=== PATIENT | female | born 1960 | race Caucasian/White ===

== ENCOUNTER 2016-10-05 12:11 | Day surgery (SDC) | payer OTHER ==
[~2016-10-05] VITALS: Ht 157.5 cm; Wt 61.5 kg
[~2016-10-05 12:11] MED LIST: CALC1TAB98 PO; MULT-552 PO
[2016-10-05 13:26] VITALS: Ht 157.5 cm; Wt 61.5 kg
[2016-10-05] MEDS ORDERED: LORA10TA3 PO (13:34)
[2016-10-05] MEDS ORDERED: PANT40TA4 PO (13:34)
[2016-10-05] MEDS ORDERED: [UNRECOGNIZED DRUG - OTHER] PO (13:34)
[2016-10-05] MEDS ORDERED: PROPOFOL 20 ML ONE (15:15)
[2016-10-05] MEDS ORDERED: MIDAZOLAM 1 MG/ML 2 ML INJ ONE (15:16)
[2016-10-05] MEDS ORDERED: LIDOCAINE 1% (MPF) 5 ML VIAL ONE (15:16)
[2016-10-05 15:28] VITALS: BP 94/64; PULSE 72; RESP 11
--- NOTE | 2016-10-05 15:45 | OPPN ---
Date/Time of Note Date/Time of Note DATE: 10/05/16 TIME: 15:37 Proc Note GI Free Text/Dictation Procedure Date: 10/05/2016 Preoperative Diagnosis: History of colon polyps Postoperative Diagnosis: * 4 mm sessile polyp descending colon. Ablated * Moderate-sized internal hemorrhoids * Otherwise normal colonoscopy to cecum Plan: * Review pathology * Annual Hemoccult stool testing * Surveillance colonoscopy in 5 years Procedure Performed: Colonoscopy with polyp ablation Surgeon: Edmundo Mello MD Line Assembler Aircraft: None Second Voucher Clerk: None Anesthesia/Sedation MAC by anesthesiologist Tourniquet Time: NA Estimated Blood Loss: 0 Transfusion Required: No Specimens: Descending colon polyp Grafts/Implants: None Tubes/Drains: NA Complications: None Pt. Condition Post Procedure: Stable Disposition: Home After informed consent, with the patient/relatives understanding the procedure, its indications and potential risks and complications, including but not limited to: Allergic reaction, bleeding, perforation, infection, and after all pertinent questions were answered to the patient's satisfaction, the patient/ relatives signed the witnessed informed consent. Following this, premedication was administered slowly IV push under careful cardiovascular and respiratory monitoring with pulse OXIMETRY, automatic blood pressure, and property assessment monitor. Once the sedative effect was achieved, the patient was placed in the left lateral decubitus position, digital rectal examination was performed. The colonoscope was then introduced and advanced under visual control throughout all segments of the colon including: the rectum, sigmoid, descending colon, splenic flexure, transverse colon, hepatic flexure, ascending colon and finally reaching the cecum which was clearly identified by transillumination, finger indentation and the ileocecal valve. Careful examination of the mucosa of the lower gastrointestinal tract both on insertion as well as withdrawal of the instrument disclosed the following findings: PREPARATION QUALITY: [Adequate], RECTAL EXAM: The anorectal area was visualized examined and digital rectal examination performed with the following findings: No evidence of perirectal disease, no masses. COLONIC MUCOSA: The mucosa of all segments of the colon was carefully examined and showed the following findings: There is a 4 mm sessile polyp in the descending colon. Ablated with biopsy forceps. Moderate-sized internal hemorrhoids are present. Otherwise the examined mucosa appears within normal limits. There is no evidence of inflammatory changes, diverticular formation, other neoplasms, vascular malformation, or any other abnormality. The instrument was then withdrawn, the patient tolerated the procedure well and was transferred out of the Endoscopy Suite awake and in good condition to continue recovery under observation. Procedure date: Oct 05, 2016 EDMUNDO MELLO MD Oct 05, 2016 15:45
--- NOTE | 2016-10-05 15:54 | OPPN ---
Date/Time of Note Date/Time of Note DATE: 10/05/16 TIME: 15:52 Proc Note GI Free Text/Dictation Preoperative Diagnosis: Dyspepsia Postoperative Diagnosis: * Mild distal esophagitis * Moderate gastritis. Rule out H. pylori infection. Biopsies obtained Plan: * PPI therapy * Review pathology Procedure Performed: EGD with biopsies Surgeon: Edmundo Mello MD Critical Care Cns: None Second Beverage Specialist: None Anesthesia/Sedation: MAC per anesthesiologist Tourniquet Time: NA Estimated Blood Loss: None Transfusion Required: No Specimens: Body and antrum of the stomach Grafts/Implants: None Tubes/Drains: NA Complications: None Pt. Condition Post Procedure: Stable Disposition: Home After informed consent, with the patient/relatives understanding the procedure, its indications, potential risks and complications, including but not limited to : allergic reaction, bleeding, perforation or infection, and after all pertinent questions were answered to the patients satisfaction, the patient/ relatives signed witnessed informed consent. Following this, premedication was administered slowly IV push under careful cardiovascular and respiratory monitoring with pulse oximetry, automatic blood pressure, and lunchroom monitor. Once the sedative effect was achieved the patient was place in the left lateral decubitus, the panendoscope was introduced and advanced under visual control. Careful examination of the upper gastrointestinal tract, both on insertion as well as withdrawal of the instrument disclosing the following findings: ESOPHAGUS: the mucosa of the entire esophagus was carefully examined and showed the following findings: There is mild erythema and edema of the mucosa at the e.g. junction. Otherwise the mucosa appears within normal limits. There is no evidence of varices, neoplasm, or stricture. No Hiatal Hernia identified. STOMACH: Upon entrance to the stomach air was insufflated, the gastric young distended normally. The mucosa of the fundus, body and antrum of the stomach was carefully examined both head-on and on retroflexion, and showed the following findings: There is moderate erythema and edema of the mucosa of the antrum. Biopsies were obtained to rule out H. pylori infection. Otherwise the mucosa appears within normal limits with no abnormalities. There is no evidence of ulcers or neoplasm. PYLORUS: The pylorus was carefully examined and showed the following findings: []the pylorus appears patent and within normal limits, with no evidence of gastric outlet obstruction. DUODENUM: The duodenal mucosa was carefully examined in the duodenal bulb as well as the second portion of the duodenum and showed the following findings: []the mucosa appears unremarkable with no evidence of duodenitis, ulcer or neoplasm. Procedure date: Oct 05, 2016 EDMUNDO MELLO MD Oct 05, 2016 15:54
== END 2016-10-05 17:23 | disposition home or self-care (01) ==
LOC: GIL 12:11
PROVIDERS: ATTEND Internal Medicine Gastroenterology
DX: D12.4 Benign neoplasm of descending colon (principal); K20.8 Other esophagitis; K29.60 Other gastritis without bleeding; K64.8 Other hemorrhoids
CPT/HCPCS: 43239; 45380; 88305; 88312; J2250; Z7610